=== PATIENT | female | born 1990 | race Caucasian/White ===

== ENCOUNTER → 2022-01-31 | Outpatient (CLI) | payer BC, SELFPAY ==
[2022-01-31 15:04] LABS: Absolute Lymphocyte Count 3.35 X10^3/uL (0.83-4.51); Absolute Neutrophil Count 4.2 X10^3/uL (2.0-7.7); Basophil# 0.07 X10^3/uL; Basophil% 0.8 % (0-1); Eosinophil# 0.21 X10^3/uL; Eosinophils% 2.5 % (0-5); Hematocrit 43.1 % (37-47); Hemoglobin 14.3 g/dL (12.0-15.0); Lymphocyte # 3.35 X10^3/ul (0.83-4.51); Lymphocyte % 39.4 % (19-41); Mean Corp Hgb Conc 33.2 g/dL (32-36); Mean Corpuscular Hgb 28.5 pg (27.0-32.0); Mean Corpuscular Volume 85.9 fL (81-99); Mean Platelet Vol. 10.2 fl (6.2-12.0); Monocyte# 0.62 X10^3/uL; Monocyte% 7.3 % (0-10); NRBC Flagged by Analyzer 0 % (0-5); Neutrophil # 4.24 X10^3/uL (2.7-7.7); Neutrophil % 49.8 % (47-70); Platelet Count 342 K/mm3 (150-450); RBC Distribution Width SD 37.6 fl (35.1-43.9); Red Blood Count 5.02 M/mm3 (4.2-5.4); White Blood Count 8.5 K/mm3 (4.4-11.0)
[2022-01-31 15:39] LABS: ALB/GLOB Ratio 1.1 RATIO (0.9-2.4); AST(SGOT) 18 U/L (15-37); Alanine Aminotransfer ALT/SGPT 45 U/L (13-56); Alkaline Phosphatase 80 U/L (45-117); Anion Gap 4 (5-15); BUN 17 mg/dL (7-18); BUN/Creat Ratio 15.5 RATIO (10-20); Calcium,Total 9.3 mg/dL (8.5-10.1); Chloride 103 mmol/L (98-107); EST Glomerular Filtration Rate 61 mL/min (>60); Est Glom Filt Rate - Afr Amer 74 mL/min (>60); Globulin 3.7 g/dL (2.2-4.2); Glucose 90 mg/dL (74-106); Potassium 4.7 mmol/L (3.5-5.1); Protein, Total 7.7 g/dL (6.4-8.2); Sodium Level 137 mmol/L (136-145)
[2022-01-31 15:52] LABS: Thyroid Stim Hormone (TSH) 4.27 uIU/mL (0.358-3.74)
== END | disposition home or self-care (01) ==
LOC: BIMLAB 13:45
PROVIDERS: Internal Medicine Endocrinology, Diabetes & Metabolism; PCP Internal Medicine; Referring Provider Internal Medicine; Visit Provider Internal Medicine
DX: F41.9 Anxiety disorder, unspecified (principal); F41.1 Generalized anxiety disorder; F32.A Depression, unspecified
CPT/HCPCS: 36415; 80053; 84439; 84443; 85025

== ENCOUNTER → 2022-08-19 | Outpatient (CLI) | payer BC, SELFPAY ==
[2022-08-19 15:33] LABS: T4 Free Direct 1.11 ng/dL (0.76-1.46); Thyroid Stim Hormone (TSH) 2.86 uIU/mL (0.358-3.74)
== END | disposition home or self-care (01) ==
LOC: LAB 13:37
PROVIDERS: PCP Internal Medicine; Referring Provider Internal Medicine Endocrinology, Diabetes & Metabolism; Visit Provider Internal Medicine Endocrinology, Diabetes & Metabolism
DX: E03.8 Other specified hypothyroidism (principal); E06.3 Autoimmune thyroiditis
CPT/HCPCS: 36415; 84439; 84443

== ENCOUNTER → 2023-04-21 | Outpatient (CLI) | payer BC, SELFPAY ==
[2023-04-21 12:31] LABS: Absolute Lymphocyte Count 3.07 X10^3/uL (0.83-4.51); Absolute Neutrophil Count 3.9 X10^3/uL (2.0-7.7); Basophil# 0.06 X10^3/uL; Basophil% 0.8 % (0-1); Eosinophil# 0.29 X10^3/uL; Eosinophils% 3.7 % (0-5); Hematocrit 44.5 % (37-47); Hemoglobin 14.7 g/dL (12.0-15.0); Lymphocyte # 3.07 X10^3/ul (0.83-4.51); Lymphocyte % 38.7 % (19-41); Mean Corpuscular Hgb 28.5 pg (27.0-32.0); Mean Corpuscular Volume 86.4 fL (81-99); Mean Platelet Vol. 10.5 fl (6.2-12.0); Monocyte# 0.61 X10^3/uL; Monocyte% 7.7 % (0-10); NRBC Flagged by Analyzer 0 % (0-5); Neutrophil # 3.88 X10^3/uL (2.7-7.7); Neutrophil % 48.7 % (47-70); Platelet Count 307 K/mm3 (150-450); RBC Distribution Width CV 11.9 % (11.6-14.6); RBC Distribution Width SD 37.5 fl (35.1-43.9); Red Blood Count 5.15 M/mm3 (4.2-5.4); White Blood Count 7.9 K/mm3 (4.4-11.0)
[2023-04-21 13:25] LABS: ALB/GLOB Ratio 0.9 RATIO (0.9-2.4); AST(SGOT) 14 U/L (15-37); Alanine Aminotransfer ALT/SGPT 28 U/L (13-56); Albumin, Serum 3.8 g/dL (3.2-5.0); Alkaline Phosphatase 94 U/L (45-117); Anion Gap 5 (5-15); BUN 11 mg/dL (7-18); BUN/Creat Ratio 15.7 RATIO (10-20); Chloride 103 mmol/L (98-107); Cholesterol 156 mg/dL (200); EST Glomerular Filtration Rate 102 mL/min (>60); Est Glom Filt Rate - Afr Amer 124 mL/min (>60); Globulin 4.3 g/dL (2.2-4.2); Glucose 98 mg/dL (74-106); High Density Lipoprotein 55 mg/dL; Potassium 3.9 mmol/L (3.5-5.1); Protein, Total 8.1 g/dL (6.4-8.2); Sodium Level 137 mmol/L (136-145); Triglycerides 251 mg/dL; Very Low Density Lipoprotein 50 mg/dL (5-40)
== END | disposition home or self-care (01) ==
LOC: BIMLAB 10:36
PROVIDERS: PCP Internal Medicine; Referring Provider Internal Medicine; Visit Provider Internal Medicine
DX: Z00.00 Encounter for general adult medical examination without abnormal findings (principal)
CPT/HCPCS: 36415; 80053; 80061; 85025

== ENCOUNTER → 2023-04-29 | Outpatient (CLI) | payer BC, SELFPAY ==
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
== END | disposition home or self-care (01) ==
LOC: CT 07:53
PROVIDERS: PCP Internal Medicine; Referring Provider Internal Medicine; Visit Provider Internal Medicine
DX: S06.0XAA Concussion with loss of consciousness status unknown, initial encounter (principal); M54.2 Cervicalgia; V89.2XXA Person injured in unspecified motor-vehicle accident, traffic, initial encounter
CPT/HCPCS: 70450; 72050

== ENCOUNTER → 2023-10-23 | Outpatient (CLI) | payer BC, SELFPAY ==
--- OUTSIDE RECORDS SUMMARY | 2023-10-23 15:11 | XMS RPT_ITS | CCD ---
Author Name Unknown Address [address] [place] [address] Organization [facility] Care Team Providers Care Weigher Production Name Role Phone Unavailable Primary Care Provider EMILY Simmons Attending Unavailable Medications Current Medications Medication Drug Class(es) Dates Sig (Normalized) Sig (Original) alpha-tocopherol acetate 30 unt / ascorbic acid 100 mg / beta carotene 1000 unt / calcium carbonate 200 mg / calcium pantothenate 7 mg / cholecalciferol 400 unt / docusate sodium 25 mg / ferrous fumarate 29 mg / folic acid 1 mg / niacinamide 15 mg / pyridoxine hydrochloride 20 mg / riboflavin 3 mg / thiamine 3 mg / vitamin b12 0.012 mg / zinc oxide 20 mg oral tablet (2 sources) Vitamin B12, Vitamin D, Vitamin C Start: 10-01-2014 End: 01-11-2022 [id number] 29 mg iron- 1 mg-25 mg tab Take by mouth. 0 10/01/2014 01/11/2022 Discontinued Completed/Discontinued Medications Medication Drug Class(es) Dates Sig (Normalized) Sig (Original) levothyroxine sodium 0.1 mg oral tablet (3 sources) l-Thyroxine Start: 11-16-2021 levothyroxine (SYNTHROID) 100 mcg tablet 24 hr venlafaxine 37.5 mg extended release oral capsule (3 sources) Serotonin and Norepinephrine Reuptake Inhibitor Start: 11-20-2021 venlafaxine ER (EFFEXOR XR) 37.5 mg 24 hr capsule Problems Active Problems Problem Classification Problem Date Documented Date Episodic/Chronic Abdominal pain (1 source) Pain in female pelvis; Translations: [Pelvic and perineal pain] Episodic Complication of device; implant or graft (1 source) Malposition of intrauterine contraceptive device; Translations: [Displacement of intrauterine contraceptive device, initial encounter] Episodic Contraceptive and procreative management (2 sources) Intrauterine contraceptive device in situ; Translations: [Encounter for routine checking of intrauterine contraceptive device] Episodic Immunizations and screening for infectious disease (1 source) Patient encounter status; Translations: [Encounter for screening for human papillomavirus (HPV)] Episodic Other screening for suspected conditions (not mental disorders or infectious disease) (1 source) Cancer cervix screening status; Translations: [Encounter for screening for malignant neoplasm of cervix] Episodic Other upper respiratory infections (1 source) Bacterial sinusitis; Translations: [Chronic sinusitis, unspecified] Chronic Other upper respiratory infections (1 source) Sore throat symptom; Translations: [Acute pharyngitis, unspecified] Episodic Thyroid disorders (3 sources) Nica thyroiditis; 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 01-11-2022 Chronic Past or Other Problems Problem Classification Problem Date Documented Da te Episodic/Chronic Residual codes; unclassified (3 sources) Insomnia; Translations: [Insomnia, unspecified] Onset: 01-11-2022 01-11-2022 Episodic Results Test Name Value Interpretation Reference Range Facil ity Vital Signs Date Time Vital Sign Value Performing Clinician Faci lity 01-12-2023 07:06-0400 Body height 173.4 cm Emily Humberto RESPIRATORY ASSISTANT.BLOW PIT OPERATOR Work Phone: [facility] 01-12-2023 07:06-0400 Body weight 90.81 kg Emily Humberto RESPIRATORY ASSISTANT.BLOW PIT OPERATOR Work Phone: [facility] 01-12-2023 07:06-0400 Diastolic blood pressure 60 mm[Hg] Emily Dover RESPIRATORY ASSISTANT.BLOW PIT OPERATOR Work Phone: [facility] 01-12-2023 07:06-0400 Systolic blood pressure 90 mm[Hg] Emily Humberto RESPIRATORY ASSISTANT.BLOW PIT OPERATOR Work Phone: [facility] 07-21-2022 17:40-0400 Body temperature 98.2 [degF] Kristan Lowery RESPIRATORY ASSISTANT.BLOW PIT OPERATOR Work Phone: [facility] 07-21-2022 17:40-0400 Body weight 88.81 kg Kristan Bailon-Leonard RESPIRATORY ASSISTANT.BLOW PIT OPERATOR Work Phone: [facility] 07-21-2022 17:40-0400 Diastolic blood pressure 74 mm[Hg] Kristan Praisler-Wood RESPIRATORY ASSISTANT.BLOW PIT OPERATOR Work Phone: [facility] 07-21-2022 17:40-0400 Heart rate 71 /min Kristan Praisler-Wood RESPIRATORY ASSISTANT.BLOW PIT OPERATOR Work Phone: [facility] 07-21-2022 17:40-0400 Respiratory rate 18 /min Kristan Praisler-Wood RESPIRATORY ASSISTANT.BLOW PIT OPERATOR Work Phone: [facility] 07-21-2022 17:40-0400 SaO2% (BldA) [Mass fraction] 99 % Kristan Praisler-Wood RESPIRATORY ASSISTANT.BLOW PIT OPERATOR Work Phone: [facility] 07-21-2022 17:40-0400 Systolic blood pressure 128 mm[Hg] Kristan Praisler-Wood RESPIRATORY ASSISTANT.BLOW PIT OPERATOR Work Phone: [facility] 01-11-2022 07:04-0400 Body height 174 cm Emily Dover RESPIRATORY ASSISTANT.BLOW PIT OPERATOR Work Phone: [facility] 01-11-2022 07:04-0400 Body weight 89.9 kg Emily Humberto RESPIRATORY ASSISTANT.BLOW PIT OPERATOR Work Phone: [facility] 01-11-2022 07:04-0400 Diastolic blood pressure 64 mm[Hg] Emily Dover RESPIRATORY ASSISTANT.BLOW PIT OPERATOR Work Phone: [facility] 01-11-2022 07:04-0400 Systolic blood pressure 122 mm[Hg] Emily Humberto RESPIRATORY ASSISTANT.BLOW PIT OPERATOR Work Phone: [facility] 12-30-2021 11:55-0400 Body weight 89.81 kg Emily Humberto RESPIRATORY ASSISTANT.BLOW PIT OPERATOR Work Phone: [facility] 12-30-2021 11:55-0400 Diastolic blood pressure 76 mm[Hg] Emily Humberto RESPIRATORY ASSISTANT.BLOW PIT OPERATOR Work Phone: [facility] 12-30-2021 11:55-0400 Systolic blood pressure 118 mm[Hg] Emily Dover RESPIRATORY ASSISTANT.BLOW PIT OPERATOR Work Phone: [facility] Encounters Encounter Date Encounter Type Care Provider Facility Start: 01-12-2023 End: 01-12-2023 ambulatory EMILY MENDEZ Facility:[facility] Start: 01-12-2023 End: 01-12-2023 Patient encounter procedure Emily Mendez MARIA ELENA Work Phone: OB/Gynecology Procedures Date Procedure Procedure Detail Performing Clinician Start: 07-21-2022 STREP A MOLECULAR (POC) Kristan Lowery APRN.CNP Work Phone: Plan of Treatment Date Care Activity Detail Author Start: 01-11-2027 HPV TESTING HPV TESTING [facility] Start: 01-11-2027 PAP TESTING PAP TESTING [facility] Start: 06-09-2023 Influenza vaccination INFLUENZA (Season Ended) [facility] Start: 10-09-2022 DEPRESSION ASSESSMENT DEPRESSION ASSESSMENT [facility] Start: 06-09-2022 Influenza vaccination [facility] Start: 10-09-2021 DEPRESSION ASSESSMENT DEPRESSION ASSESSMENT [facility] Start: 06-09-2021 Influenza vaccination INFLUENZA (#1) [facility] Start: 01-06-2020 HPV TESTING HPV TESTING [facility] Start: 2011 PAP TESTING PAP TESTING [facility] Start: 2009 Urine microalbumin profile DTAP,TDAP,TD (1 - Tdap) [facility] Start: 01-06-2008 HEPATITIS C SCREENING HEPATITIS C SCREENING [facility] Start: 01-06-2008 HIV SCREENING HIV SCREENING [facility] Start: 2002 Adult depression screening assessment DEPRESSION SCREENING [facility] Start: 1995 COVID-19 VACCINE (1) COVID-19 VACCINE (1) [facility] Start: 1990 COVID-19 VACCINE (#1) COVID-19 VACCINE (#1) [facility] Start: 1990 HEPATITIS B (1 of 3 - 3-dose series) HEPATITIS B (1 of 3 - 3-dose series) [facility] PAP FLUID CERVICAL SCREENING PAP FLUID CERVICAL SCREENING Lab Routine Screening for cervical cancer Encounter for screening for human papillomavirus (HPV) Ordered: 01/11/2022 [facility] Work Phone: Payers Date Payer Category Payer Unknown [employer] [id number] 2021-Present [phone] [id number] [place] [address] PPO [id number] 2021 Unknown [employer] [id number] 2021-Present [phone] [address] [place] [address] PPO [id number] 2021 Unknown [id number] Social History Date Type Detail Facility Start: 10-01-2014 End: 07-21-2022 Tobacco smoking status NHIS Never smoked tobacco [facility] Start: 10-01-2014 End: 07-21-2022 Tobacco use and exposure Smokeless tobacco non-user [facility] Start: 12-30-2021 End: 01-12-2023 Alcohol intake Current non-drinker of alcohol (finding) [facility] Start: 1990 Sex Assigned At Not on file [facility] Start: 12-20-2021 End: 07-21-2022 Exposure to SARS-CoV-2 (event) Not sure [facility] Start: 1990 Sex Assigned At Female [facility] Clinical Notes 12-30-2021 to 01-12-2023 Emily Mendez APRN.KELLEN - 01/12/2023 7:05 AM Loly Lowery APRN.CNP - 07/21/2022 6:03 PM EDTPatient Alberto Mendez APRN.CNP - 01/11/2022 7:03 AM EDT Note Date & Type Note Facility 01-12-2023 Note HNO ID: [id number] Author: Emily Mendez APRN.CNP Service: ? Author Type: Nurse Practitioner Type: Progress Notes Filed: 01/12/2023 8:15 AM Note Text: Yuniel is a 33 year old who presents for an annual gynecologic exam without complaints. Menses: cycles every 25-30 days and 4-5 days of flow. 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 No pertinent family history.SOCIAL HISTORY Social History Tobacco Use Smoking status: Never Smokeless tobacco: Never Vaping Use Vaping Use: Never used Substance Use Topics Alcohol use: No Drug use: No REVIEW OF SYSTEMS Abdomen: No abdominal pain, nausea, vomiting, diarrhea, or constipation. No bloating, early satiety, indigestion, or increased flatulence. Bladder: No dysuria, gross hematuria, urinary frequency, urinary urgency, or incontinence. Breast: No breast lumps, nipple d/c, overlying skin changes, redness or skin retraction. Allergies and current medication updated:Yes EXAM: Ht 5' 8.25 (1.73m) Wt 200 lb 3.2 oz (90.8kg) LMP 12/23/2022 BMI 30.20 kg/(m2). GENERAL: pleasant, female in no apparent distress HEENT: Normocephalic, atraumatic, and no lesions NECK: Supple, full range of motion, no adenopathy, and thyroid normal DERMATOLOGY: Normal, without lesions, non-icteric, and non-hirsute BREAST: soft, non-tender, symmetric, no dominant mass, normal nipple-areolar complex, no lymphadenopathy, and no nipple discharge CHEST: Normal inspiratory effort ABDOMEN: soft, non-tender, and no masses PELVIC: external genitalia normal, normal Bartholin's glands, urethra, [place]'s glands, no vulvar lesions, no cervical lesions, good vaginal support, physiologic discharge present, normal appearing perineal body and perianal region BIMANUAL: uterus normal size, shape and consistency, no adnexal masses, and non-tender RECTOVAGINAL: deferred. NEURO: alert and oriented x3,exam grossly non-focal EXTREMITIES: normal ASSESSMENT/PLAN: 1) Health maintenance: Pap/HPV up to date. Mammogram starting age 40. Nutrition, exercise and routine health maintenance exams reviewed. 2) Contraception: none. Contraceptive options reviewed and information provided. 3) STD screening: Declined STD check. 4) Follow up one year or sooner as needed Emily Mendez APRN.CNP [facility] 01-12-2023 History of Present illness Narrative Yuniel is a 33 year old who presents for an annual gynecologic exam without complaints. Menses: cycles every 25-30 days and 4-5 days of flow. 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 No pertinent family history.SOCIAL HISTORY Social History Tobacco Use Smoking status: Never Smokeless tobacco: Never Vaping Use Vaping Use: Never used Substance Use Topics Alcohol use: No Drug use: No REVIEW OF SYSTEMS Abdomen: No abdominal pain, nausea, vomiting, diarrhea, or constipation. No bloating, early satiety, indigestion, or increased flatulence. Bladder: No dysuria, gross hematuria, urinary frequency, urinary urgency, or incontinence. Breast: No breast lumps, nipple d/c, overlying skin changes, redness or skin retraction. Allergies and current medication updated:Yes EXAM: Ht 5' 8.25 (1.73m) Wt 200 lb 3.2 oz (90.8kg) LMP 12/23/2022 BMI 30.20 kg/(m^2). GENERAL: pleasant, female in no apparent distress HEENT: Normocephalic, atraumatic, and no lesions NECK: Supple, full range of motion, no adenopathy, and thyroid normal DERMATOLOGY: Normal, without lesions, non-icteric, and non-hirsute BREAST: soft, non-tender, symmetric, no dominant mass, normal nipple-areolar complex, no lymphadenopathy, and no nipple discharge CHEST: Normal inspiratory effort ABDOMEN: soft, non-tender, and no masses PELVIC: external genitalia normal, normal Bartholin's glands, urethra, [place]'s glands, no vulvar lesions, no cervical lesions, good vaginal support, physiologic discharge present, normal appearing perineal body and perianal region BIMANUAL: uterus normal size, shape and consistency, no adnexal masses, and non-tender RECTOVAGINAL: deferred. NEURO: alert and oriented x3,exam grossly non-focal EXTREMITIES: normal ASSESSMENT/PLAN: 1) Health maintenance: Pap/HPV up to date. Mammogram starting age 40. Nutrition, exercise and routine health maintenance exams reviewed. 2) Contraception: none. Contraceptive options reviewed and information provided. 3) STD screening: Declined STD check. 4) Follow up one year or sooner as needed Emily Mendez APRN.KELLEN documented in this encounter [facility] 07-21-2022 Note HNO ID: [id number] Author: Kristan Lowery APRN.KELLEN Service: ? Author Type: Nurse Practitioner Type: Progress Notes Filed: 07/21/2022 6:30 PM Note Text: Subjective Sore Throat Associated symptoms include coughing. Pertinent negatives include no abdominal pain, congestion, diarrhea, ear pain, headaches, shortness of breath or vomiting. Yuniel Hackett is a 32 year old female who presents with a sore throat and productive cough x 6 days. Pt endorses headache, fever, congestion and rhinorrhea 6 days ago which has now resolved. Denies abdominal pain, nausea or diarrhea. Pt rates sore throat 9/10 pain. Pt reports taking mucinex at home without relief. Pt states she recently had covid-19 at the end of May 2022. Review of Systems Constitutional: Negative for chills and fever. HENT: Positive for sore throat. Negative for congestion, ear pain and sinus pain. Eyes: Negative for discharge and redness. Respiratory: Positive for cough and sputum production. Negative for shortness of breath. Gastrointestinal: Negative for abdominal pain, constipation, diarrhea, nausea and vomiting. Neurological: Negative for headaches. BP 128/74 Pulse 71 Temp 36.8 ?C (98.2 ?F) Resp 18 Wt 88.8 kg (195 lb 12.8 oz) LMP 07/12/2022 SpO2 99% BMI 29.34 kg/m? PAST MEDICAL HISTORY Diagnosis Date Anxiety state Depression Nica's disease PAST SURGICAL HISTORY Procedure Laterality Date INSERTION OF IUD 01/2018 ALLERGIES Patient has no known allergies. MEDICATIONS levothyroxine (SYNTHROID) 100 mcg tablet venlafaxine ER (EFFEXOR XR) 37.5 mg 24 hr capsule hydrOXYzine HCl (ATARAX) 25 mg tablet Take by mouth. (Patient not taking: Reported on 07/21/2022) No family history on file. Social History Tobacco Use Smoking status: Never Smokeless tobacco: Never Vaping Use Vaping Use: Never used Substance Use Topics Alcohol use: No Drug use: No Objective Physical Exam Vitals and nursing note reviewed. Constitutional: Appearance: Normal appearance. HENT: Head: Normocephalic and atraumatic. Right Ear: Tympanic membrane and ear canal normal. Left Ear: Tympanic membrane and ear canal normal. Nose: Congestion present. No rhinorrhea. Mouth/Throat: Pharynx: Posterior oropharyngeal erythema present. No oropharyngeal exudate. Eyes: Conjunctiva/sclera: Conjunctivae normal. Cardiovascular: Rate and Rhythm: Normal rate and regular rhythm. Pulmonary: Effort: Pulmonary effort is normal. Breath sounds: Normal breath sounds. Abdominal: Palpations: Abdomen is soft. Lymphadenopathy: Cervical: No cervical adenopathy. Skin: General: Skin is warm and dry. Neurological: Mental Status: She is alert. ASSESSMENT/PLAN: 1. Sore throat - ICD9: 462, ICD10: J02.9 (primary diagnosis) - Rapid Strep negative in the office today - STREP A MOLECULAR (POC) 2. Bacterial sinusitis - ICD9: 473.9, 041.9, ICD10: J32.9, B96.89 - Will begin treatment with Augmentin 875 mg PO BID for 10 days - Supportive care with plenty of fluids, rest, and analgesia prn. - Follow up in 3-5 days if symptoms persist or worsen. - AMOXICILLIN 875 MG-POTASSIUM CLAVULANATE 125 MG TABLET Aline Aguilar APRN Student TEACHING PROVIDER (Physician/PA/RESPIRATORY ASSISTANT) NOTE OF PERSONAL INVOLVEMENT IN CARE: I have personally seen and examined the patient and performed the medical decision-making components. I have reviewed the Advanced Practice Registered Nurse (RESPIRATORY ASSISTANT) Student's documentation and verified the findings in the note as written. Any additions or changes are noted in bold/italics. Signature: Kristan Lowery Date: 07/21/2022 Time: 6:29 PM [facility] 07-21-2022 History of Present illness Narrative Subjective Sore Throat Associated symptoms include coughing. Pertinent negatives include no abdominal pain, congestion, diarrhea, ear pain, headaches, shortness of breath or vomiting. Yuniel Hackett is a 32 year old female who presents with a sore throat and productive cough x 6 days. Pt endorses headache, fever, congestion and rhinorrhea 6 days ago which has now resolved. Denies abdominal pain, nausea or diarrhea. Pt rates sore throat 9/10 pain. Pt reports taking mucinex at home without relief. Pt states she recently had covid-19 at the end of May 2022. Review of Systems Constitutional: Negative for chills and fever. HENT: Positive for sore throat. Negative for congestion, ear pain and sinus pain. Eyes: Negative for discharge and redness. Respiratory: Positive for cough and sputum production. Negative for shortness of breath. Gastrointestinal: Negative for abdominal pain, constipation, diarrhea, nausea and vomiting. Neurological: Negative for headaches. BP 128/74 Pulse 71 Temp 36.8 C (98.2 F) Resp 18 Wt 88.8 kg (195 lb 12.8 oz) LMP 07/12/2022 SpO2 99% BMI 29.34 kg/m PAST MEDICAL HISTORY Diagnosis Date Anxiety state Depression Nica's disease PAST SURGICAL HISTORY Procedure Laterality Date INSERTION OF IUD 01/2018 ALLERGIES Patient has no known allergies. MEDICATIONS levothyroxine (SYNTHROID) 100 mcg tablet venlafaxine ER (EFFEXOR XR) 37.5 mg 24 hr capsule hydrOXYzine HCl (ATARAX) 25 mg tablet Take by mouth. (Patient not taking: Reported on 07/21/2022) No family history on file. Social History Tobacco Use Smoking status: Never Smokeless tobacco: Never Vaping Use Vaping Use: Never used Substance Use Topics Alcohol use: No Drug use: No Objective Physical Exam Vitals and nursing note reviewed. Constitutional: Appearance: Normal appearance. HENT: Head: Normocephalic and atraumatic. Right Ear: Tympanic membrane and ear canal normal. Left Ear: Tympanic membrane and ear canal normal. Nose: Congestion present. No rhinorrhea. Mouth/Throat: Pharynx: Posterior oropharyngeal erythema present. No oropharyngeal exudate. Eyes: Conjunctiva/sclera: Conjunctivae normal. Cardiovascular: Rate and Rhythm: Normal rate and regular rhythm. Pulmonary: Effort: Pulmonary effort is normal. Breath sounds: Normal breath sounds. Abdominal: Palpations: Abdomen is soft. Lymphadenopathy: Cervical: No cervical adenopathy. Skin: General: Skin is warm and dry. Neurological: Mental Status: She is alert. ASSESSMENT/PLAN: 1. Sore throat - ICD9: 462, ICD10: J02.9 (primary diagnosis) - Rapid Strep negative in the office today - STREP A MOLECULAR (POC) 2. Bacterial sinusitis - ICD9: 473.9, 041.9, ICD10: J32.9, B96.89 - Will begin treatment with Augmentin 875 mg PO BID for 10 days - Supportive care with plenty of fluids, rest, and analgesia prn. - Follow up in 3-5 days if symptoms persist or worsen. - AMOXICILLIN 875 MG-POTASSIUM CLAVULANATE 125 MG TABLET Aline Aguilar APRN Student TEACHING PROVIDER (Physician/PA/RESPIRATORY ASSISTANT) NOTE OF PERSONAL INVOLVEMENT IN CARE: I have personally seen and examined the patient and performed the medical decision-making components. I have reviewed the Advanced Practice Registered Nurse (RESPIRATORY ASSISTANT) Student's documentation and verified the findings in the note as written. Any additions or changes are noted in bold/italics. Signature: Kristan Lowery Date: 07/21/2022 Time: 6:29 PM documented in this encounter [facility] 07-21-2022 Instructions Aline Aguilar - 07/21/2022 6:03 PM EDT ASSESSMENT/PLAN: 1. Sore throat - ICD9: 462, ICD10: J02.9 (primary diagnosis) - Rapid Strep negative in the office today - STREP A MOLECULAR (POC) 2. Bacterial sinusitis - ICD9: 473.9, 041.9, ICD10: J32.9, B96.89 - Will begin treatment with Augmentin 875 mg PO BID for 10 days - Supportive care with plenty of fluids, rest, and analgesia prn. - Follow up in 3-5 days if symptoms persist or worsen. - AMOXICILLIN 875 MG-POTASSIUM CLAVULANATE 125 MG TABLET Aline Aguilar APRN Student Each of us has four paired cavities (spaces) in our head that are connected to the nose by narrow channels. These cavities, known as sinuses, produce a thin mucus that drains out of the channels of the nose. Normally, sinuses are filled with air. But when sinuses become blocked and filled with fluid, bacteria can grow and cause an infection (sinusitis). Conditions that cause sinus blockage include the common cold, allergic rhinitis (swelling of the lining of the nose due to allergies), nasal polyps (small growths in the lining of the nose), or deviated septum (a shift in the nasal cavity). Allergies such as hay fever can also cause swelling and poor drainage of the sinuses. If you have symptoms that involve the sinuses, it may be difficult to tell if you have sinusitis, a cold, or a nasal allergy. This article will describe the symptoms, diagnosis, and treatment of sinusitis, and how to distinguish sinusitis from a cold or nasal allergy. What is sinusitis? Sinusitis is an inflammation, or swelling, of the tissue lining the sinuses. There are two types of sinusitis: Acute sinusitis: a sudden onset of cold symptoms such as runny nose, stuffy nose, and facial pain that does not go away after 7-10 days. It responds well to antibiotics and decongestants. Chronic sinusitis: characterized by nasal congestion, drainage, facial pain/pressure, and decreased sense of smell for at least 12 weeks. Who gets sinusitis? About 37 million Americans suffer from at least one episode of sinusitis each year. People who have the following conditions have a higher risk of sinusitis: Nasal mucus membrane swelling, as from a common cold Blockage of drainage ducts Structure differences that narrow the drainage ducts Conditions that result in an increased risk of infection In children, common environmental factors that contribute to sinusitis include allergies, illness from other children at day care or school, pacifiers, bottle drinking while lying on the back, and smoke in the environment. In adults, the contributing factors are most frequently infections, allergies, and smoking. What are the signs and symptoms of acute sinusitis? The primary symptoms of acute sinusitis include: Facial pain/pressure Nasal stuffiness Nasal discharge Loss of smell Cough/congestion Additional symptoms may include: Fever Bad breath Fatigue Dental pain Acute sinusitis can last four weeks or more. This condition may be diagnosed when a person has two or more symptoms and/or the presence of thick, green, or yellow nasal discharge. What are the signs and symptoms of chronic sinusitis? People with chronic sinusitis may have the following symptoms for 12 weeks or more: Facial congestion/fullness A nasal obstruction/blockage Pus in the nasal cavity Fever Nasal discharge/discolored postnasal drainage Additional symptoms may include: Headaches Bad breath Fatigue Dental pain Thick nasal discharge How is sinusitis treated? Acute sinusitis. If you have a simple sinusitis infection, your health care provider may recommend treatment with decongestants like Sudafed and steam inhalations alone, as most sinusitis is viral. Antibiotics are generally needed for more seriously ill patients. If antibiotics are administered, they are given for 10 to 14 days. With treatment, the symptoms usually disappear and antibiotics are no longer required. Oral and topical decongestants may be prescribed to alleviate the symptoms. Use of prescription intranasal steroid sprays might be effective in controlling symptoms. However, non-prescription drops or sprays should not be used beyond their recommended period--usually four to five days--or they may actually increase congestion. Chronic sinusitis. Warm moist air may alleviate sinus congestion. Using a vaporizer or inhaling steam from a joshi of boiling water (removed from heat) may also help. Warm compresses are useful to relieve pain in the nose and sinuses. Saline nose drops are also safe for home use. Nonprescription drops or sprays might be effective in controlling symptoms; however, they should not be used beyond their recommended period of time. Nasal steroid sprays that shrink swollen membranes of the nose are beneficial. Antibiotics may also be prescribed. Avoidance of triggers is important. Allergies should be controlled and irritants, such as smoke, should be avoided. documented in this encounter [facility] 01-11-2022 History of Present illness Narrative Yuniel is a 32 year old who presents for an annual gynecologic exam without complaints. Menses: random spotting with IUD before removed. Contraception: none HPV vaccine: Yes Last Pap: normal HPV: N/A History of abnormal pap: No Last mammogram: never Sexually active: Yes Pain with intercourse: No Postcoital bleeding: No OB History T2 L2 SAB0 IAB0 Ectopic0 Multiple0 Live Births2 Manufacturing Electric[employer] History LMP: 12/26/2021, Having periods Age at Menarche: Age at First : Age at Menopause: Manufacturing Electrician History Comments: Sexual Activity: Yes; Male; kyleena Contraception: I.U.D. PAST MEDICAL HISTORY Diagnosis Date Anxiety state Depression Nica's disease PAST SURGICAL HISTORY Procedure Laterality Date INSERTION OF IUD 01/2018 History reviewed. No pertinent family history.SOCIAL HISTORY Social History Tobacco Use Smoking status: Never Smoker Smokeless tobacco: Never Used Vaping Use Vaping Use: Never used Substance Use Topics Alcohol use: No Drug use: No REVIEW OF SYSTEMS Abdomen: No abdominal pain, nausea, vomiting, diarrhea, or constipation. No bloating, early satiety, indigestion, or increased flatulence. Bladder: No dysuria, gross hematuria, urinary frequency, urinary urgency, or incontinence. Breast: No breast lumps, nipple d/c, overlying skin changes, redness or skin retraction. Allergies and current medication updated:Yes EXAM: Ht 5' 8.5 (1.74m) Wt 198 lb 3.2 oz (89.9kg) LMP 12/26/2021 BMI 29.69 kg/(m^2). GENERAL: pleasant, female in no apparent distress HEENT: Normocephalic, atraumatic, mucus membranes moist and no lesions NECK: Supple, full range of motion, no adenopathy and thyroid normal DERMATOLOGY: Normal, without lesions, non-icteric and non-hirsute BREAST: soft, non-tender, symmetric, no dominant mass, normal nipple-areolar complex, no lymphadenopathy and no nipple discharge CHEST: Normal inspiratory effort ABDOMEN: soft, non-tender and no masses PELVIC: external genitalia normal, normal Bartholin's glands, urethra, [place]'s glands, no vulvar lesions, no cervical lesions, physiologic discharge present, normal appearing perineal body and perianal region BIMANUAL: uterus normal size, shape and consistency, no adnexal masses and non-tender RECTOVAGINAL: deferred. NEURO: alert and oriented x3,exam grossly non-focal EXTREMITIES: normal ASSESSMENT/PLAN: 1) Health maintenance: Pap done with HPV. Mammogram starting age 40. Nutrition, exercise and routine health maintenance exams reviewed. Calcium/Vitamin D supplementation information provided. 2) Contraception: none. Contraceptive options reviewed and information provided. 3) STD screening: Declined STD check. 4) Follow up one year or sooner as needed Emily Mendez APRN.KELLEN documented in this encounter [facility] 12-30-2021 History of Present illness Narrative Yuniel Hackett presents today for IUD check. She had a Mirena placed about 4 yrs ago. Mild bleeding/spotting since period last week. Period started last Monday, having more clots, sex painful and able to feel the string low REVIEW OF SYSTEMS: PAIN ASSESSMENT: CURRENTLY HAVING PAIN; see HPI PHYSICAL EXAMINATION: There were no vitals taken for this visit. ABDOMEN:soft, non-tender, no masses, no hepatosplenomegaly and no lymphadenopathy EXTERNAL GENITALIA: Normal genitalia and Bartholins, Urethra, Sken'e normal CERVIX: smooth, no lesions. IUD strings visible. Strings longer Yuniel Hackett presents for removal of IUD due to irregular bleeding and pain. UNIVERSAL PROTOCOL / SAFETY CHECKLIST Procedure to be Performed: Mirena removal Sign In: A Moment of CARE was completed. Personnel directly involved with the procedure wore the appropriate PPE (Personal Protective Equipment). Patient/Surrogate Stated/Verified: PATIENT VERIFIED(optional for EMERGENT procedures): Patient name, Date of , Relevant allergies and The intended procedure Time Out Communication: Intended patient and procedure match the source documents. Consent documented and matches the intended procedure. Sign Out: SIGN OUT (optional for EMERGENT procedures): No specimen collected. All instruments, equipment, possible retained foreign bodies accounted for. Emily Mendez APRN.CNP PROCEDURE: Speculum placed in vagina, IUD string visualized and grasped with ring forceps. ASSESSMENT/PLAN: IUD removed without difficulty, intact, and patient tolerated procedure well. Contraception plans: none Reviewed pre-conception guidelines including folic acid supplementation, optimal timing of intercourse, avoidance of smoking, alcohol, exposure to environmental chemicals and need for evaluation if not within 12 months. * verbal consent given by pt during exam Emily Mendez APRN.CNP Medical Decision Making: Problems: Low: Acute, uncomplicated illness or injury Risk: Low: Low risk from testing/treatment Medical Decision Making Level: 3 - Low documented in this encounter [facility] Encounter for gynecological examination (general) (routine) without abnormal findings- Primary Screening for cervical cancer Screening for malignant neoplasm of the cervix Encounter for screening for human papillomavirus (HPV) Special screening examination for human papillomavirus (HPV) [facility] Diagnosis Sore throat- Primary Acute pharyngitis Bacterial sinusitis Unspecified sinusitis (chronic) [facility] Diagnosis Encounter for gynecological examination (general) (routine) without abnormal findings- Primary documented in this encounter [facility] Summary Purpose Family History No Family History Records Found Advance Directives No Advanced Directives Records Found Additional Source Comments Source Comments (unrecognize d section and content) In the event this informatio n is protected by the Federal Confidentiality of Alcohol and Drug Abuse Patient Records regulations: The Federal rules restrict any use of the information to criminally investigate or prosecute any alcohol or drug abuse patient.[facility] the event this information is protected by the Federal Confidentiality of Alcohol and Drug Abuse Patient Records regulations: The Federal rules restrict any use of the information to criminally investigate or prosecute any alcohol or drug abuse patient.[facility] the event this information is protected by the Federal Confidentiality of Alcohol and Drug Abuse Patient Records regulations: The Federal rules restrict any use of the information to criminally investigate or prosecute any alcohol or drug abuse patient.[facility] the event this information is protected by the Federal Confidentiality of Alcohol and Drug Abuse Patient Records regulations: The Federal rules restrict any use of the information to criminally investigate or prosecute any alcohol or drug abuse patient.[facility] Reason for Visit (unrecogniz ed section and content) Reason Comments Yearly Exam Reason Comments Sore Throat Pain rated 10, x6 da ys,reported blisters on throat, cough. INFORMATION SOURCE (unrecogn ized section and content) FOR RECORDS PERTAINING TO PATIENTS WHO ARE OR HAVE BEEN ENROLLED IN A CHEMICAL DEPENDENCY/SUBSTANCEABUSE PROGRAM, SOME INFORMATION MAY BE OMITTED. This clinical summary was aggregated from multiple sources. Caution should be exercised in using it in the provision of clinical care. This summary normalizes information from multiple sources, and as a consequence, information in this document may materially change the coding, format and clinical context of patient data. In addition, data may be omitted in some cases. CLINICAL DECISIONS SHOULD BE BASED ON THE PRIMARY CLINICAL RECORDS. [facility]. provides no warranty or guarantee of the accuracy or completeness of information in this document.
[2023-10-23 17:12] LABS: Thyroid Stim Hormone (TSH) 5.86 uIU/mL (0.358-3.74)
[2023-10-24 14:08] LABS: T4 Free Direct 1.35 ng/dL (0.76-1.46)
== END | disposition home or self-care (01) ==
LOC: BIMLAB 14:06
PROVIDERS: PCP Internal Medicine; Referring Provider Internal Medicine; Visit Provider Internal Medicine
DX: E03.8 Other specified hypothyroidism (principal); E06.3 Autoimmune thyroiditis
CPT/HCPCS: 36415; 84439; 84443

== ENCOUNTER → 2024-04-22 | Outpatient (CLI) | payer BC, SELFPAY ==
[2024-04-22 12:05] LABS: Absolute Lymphocyte Count 3.13 X10^3/uL (0.83-4.51); Absolute Neutrophil Count 5.2 X10^3/uL (2.0-7.7); Basophil# 0.09 X10^3/uL; Basophil% 0.9 % (0-1); Eosinophil# 0.55 X10^3/uL; Eosinophils% 5.7 % (0-5); Hematocrit 44.6 % (37-47); Hemoglobin 14.5 g/dL (12.0-15.0); Lymphocyte # 3.13 X10^3/ul (0.83-4.51); Lymphocyte % 32.3 % (19-41); Mean Corp Hgb Conc 32.5 g/dL (32-36); Mean Corpuscular Hgb 27.8 pg (27.0-32.0); Mean Corpuscular Volume 85.6 fL (81-99); Mean Platelet Vol. 10.4 fl (6.2-12.0); Monocyte# 0.66 X10^3/uL; Monocyte% 6.8 % (0-10); NRBC Flagged by Analyzer 0 % (0-5); Neutrophil % 53.8 % (47-70); Platelet Count 312 K/mm3 (150-450); RBC Distribution Width CV 11.9 % (11.6-14.6); RBC Distribution Width SD 37.2 fl (35.1-43.9); Red Blood Count 5.21 M/mm3 (4.2-5.4); White Blood Count 9.7 K/mm3 (4.4-11.0)
[2024-04-22 13:01] LABS: T4 Free Direct 1.44 ng/dL (0.76-1.46); Thyroid Stim Hormone (TSH) 2.87 uIU/mL (0.358-3.74)
[2024-04-22 14:13] LABS: ALB/GLOB Ratio 0.9 RATIO (0.9-2.4); AST(SGOT) 11 U/L (15-37); Alanine Aminotransfer ALT/SGPT 21 U/L (13-56); Albumin, Serum 3.8 g/dL (3.2-5.0); Alkaline Phosphatase 75 U/L (45-117); Anion Gap 6 (5-15); BUN 13 mg/dL (7-18); BUN/Creat Ratio 16.8 RATIO (10-20); Calcium,Total 9.4 mg/dL (8.5-10.1); Chloride 102 mmol/L (98-107); Cholesterol 142 mg/dL (200); Creatinine, Serum 0.78 mg/dL (0.55-1.02); EST Glomerular Filtration Rate 90 mL/min (>60); Est Glom Filt Rate - Afr Amer 109 mL/min (>60); Globulin 4.1 g/dL (2.2-4.2); Glucose 100 mg/dL (74-106); High Density Lipoprotein 54 mg/dL; Potassium 4.1 mmol/L (3.5-5.1); Protein, Total 7.9 g/dL (6.4-8.2); Sodium Level 135 mmol/L (136-145); Triglycerides 108 mg/dL; Very Low Density Lipoprotein 22 mg/dL (5-40)
== END | disposition home or self-care (01) ==
LOC: BIMLAB 08:33
PROVIDERS: Internal Medicine Endocrinology, Diabetes & Metabolism; PCP Internal Medicine; Referring Provider Internal Medicine; Visit Provider Internal Medicine
DX: Z00.00 Encounter for general adult medical examination without abnormal findings (principal); E03.8 Other specified hypothyroidism; E06.3 Autoimmune thyroiditis
CPT/HCPCS: 36415; 80053; 80061; 84439; 84443; 85025

== ENCOUNTER → 2025-01-06 | Outpatient (CLI) | payer BC, SELFPAY ==
[2025-01-06 15:30] LABS: Absolute Lymphocyte Count 3.74 X10^3/uL (0.83-4.51); Absolute Neutrophil Count 5.2 X10^3/uL (2.0-7.7); Basophil# 0.09 X10^3/uL; Basophil% 0.9 % (0-1); Eosinophils% 5.9 % (0-5); Hematocrit 42.9 % (37-47); Hemoglobin 14.3 g/dL (12.0-15.0); Lymphocyte # 3.74 X10^3/ul (0.83-4.51); Lymphocyte % 36.5 % (19-41); Mean Corp Hgb Conc 33.3 g/dL (32-36); Mean Corpuscular Hgb 28.2 pg (27.0-32.0); Mean Corpuscular Volume 84.6 fL (81-99); Mean Platelet Vol. 10.3 fl (6.2-12.0); Monocyte# 0.61 X10^3/uL; NRBC Flagged by Analyzer 0 % (0-5); Neutrophil # 5.16 X10^3/uL (2.7-7.7); Neutrophil % 50.3 % (47-70); Platelet Count 325 K/mm3 (150-450); RBC Distribution Width CV 11.9 % (11.6-14.6); RBC Distribution Width SD 35.8 fl (35.1-43.9); Red Blood Count 5.07 M/mm3 (4.2-5.4); White Blood Count 10.2 K/mm3 (4.4-11.0)
[2025-01-06 15:53] LABS: ALB/GLOB Ratio 1.1 RATIO (0.9-2.4); AST(SGOT) 17 U/L (<=31); Alanine Aminotransfer ALT/SGPT 17 U/L (<=34); Albumin, Serum 4.2 g/dL (3.5-5.0); Alkaline Phosphatase 93 U/L (35-104); Anion Gap 11 (5-15); BUN 12 mg/dL (4-19); BUN/Creat Ratio 16.3 RATIO (10-20); Calcium,Total 9.5 mg/dL (7.6-11.0); Carbon Dioxide 26.3 mmol/L (21.0-32.0); Chloride 102 mmol/L (98-108); Cholesterol 168 mg/dL (<=200); Creatinine, Serum 0.71 mg/dL (0.70-1.20); EST Glomerular Filtration Rate 113 (>60); Globulin 3.7 g/dL (2.2-4.2); Glucose 94 mg/dL (70-99); High Density Lipoprotein 48 mg/dL; Low Density Lipoprotein Calc. 43 mg/dL; Potassium 3.6 mmol/L (3.3-5.1); Sodium Level 139 mmol/L (133-145); Total Bilirubin 0.34 mg/dL (0.00-1.30); Triglycerides 385 mg/dL; Very Low Density Lipoprotein 77 mg/dL (5-40); cholesterol:hdl ratio screen 3.48
== END | disposition home or self-care (01) ==
LOC: BIMLAB 13:52
PROVIDERS: PCP Internal Medicine; Referring Provider Internal Medicine Endocrinology, Diabetes & Metabolism; Visit Provider Internal Medicine Endocrinology, Diabetes & Metabolism
DX: Z00.00 Encounter for general adult medical examination without abnormal findings (principal); E03.8 Other specified hypothyroidism; E06.3 Autoimmune thyroiditis
CPT/HCPCS: 36415; 80053; 80061; 84439; 84443; 85025

== ENCOUNTER → 2025-08-13 | Outpatient (CLI) | payer BC, SELFPAY ==
--- NOTE | 2025-08-13 12:26 | CT_ITS ---
CT/Abdomen/Pelvis WITH Contrast
== END | disposition home or self-care (01) ==
PROVIDERS: PCP Internal Medicine; Referring Provider Internal Medicine; Visit Provider Internal Medicine
DX: R10.31 Right lower quadrant pain (principal)
CPT/HCPCS: 74177; Q9967